=== PATIENT | female | born 1995 | race Caucasian/White ===

== ENCOUNTER 2017-05-02 10:44 | Emergency (ER) | payer BC ==
[~2017-05-02] VITALS: Ht 172.7 cm; Wt 58.9 kg
[2017-05-02 10:46] VITALS: Ht 172.7 cm; Wt 58.9 kg
[2017-05-02] MEDS ORDERED: SODIUM CHLORIDE 0.9% 1000ML 2,000 ML IV STA (10:53)
--- NOTE | 2017-05-02 11:29 | DIAGNOSTIC IMAGING REPORT ---
CHEST ONE VIEW PORTABLE CLINICAL HISTORY: Cough, hypertension. COMPARISON STUDY: No previous studies for comparison. FINDINGS: The cardiac and mediastinal contours are normal. There is no evidence of focal pulmonary consolidation. There is no evidence of failure. No pleural effusions are visualized.[ IMPRESSION: No active disease in the chest. Electronically signed by: Nikunj Cabral M.D. 05/02/2017 11:28 AM Dictated Date/Time: 05/02/2017 11:28 AM
[2017-05-02 11:39] LABS: HEMATOCRIT 40.1 % (37-47); HEMOGLOBIN 13.7 g/dL (12.0-16.0); MEAN CELL VOLUME 98.5 fL (80-100); MEAN CORPUSCULAR HEMOGLOBIN 33.7 pg (25-34); MEAN CORPUSCULAR HGB CONC 34.2 g/dl (32-36); MEAN PLATELET VOLUME 10.2 fL (7.4-10.4); PLATELET COUNT 140 K/uL (130-400); RED CELL DISTRIBUTION WIDTH CV 12.9 % (11.5-14.5); RED CELL DISTRIBUTION WIDTH SD 46.8 fL (36.4-46.3); WHITE BLOOD COUNT 5.86 K/uL (4.8-10.8)
[2017-05-02 11:42] LABS: ISTAT IONIZED CALCIUM 1.14 mmol/l; ISTAT POTASSIUM 3.7 mEq/L (3.3-5.0)
[2017-05-02 11:58] LABS: CALCIUM 8.9 mg/dl (8.5-10.1); CREATININE 1.03 mg/dl (0.60-1.20); POTASSIUM 3.7 mmol/L (3.5-5.1)
[2017-05-02 12:01] LABS: TOTAL PROTEIN 7.5 gm/dl (6.4-8.2)
[2017-05-02 12:06] LABS: BASO % 0.2 %; BASO ABS # 0.01 K/uL (0-0.2); EOS % 0.2 %; EOS ABS # 0.01 K/uL (0-0.5); IG# 0.01 K/uL (0.00-0.02); LYMPH % 14.3 %; LYMPH ABS # 0.84 K/uL (1.2-3.4); MONO % 6.8 %; NEUT % 78.3 %; NEUT ABS # 4.59 K/uL (1.4-6.5)
[2017-05-02] MEDS ORDERED: IBUP200T52 PO (12:09)
[2017-05-02] MEDS ORDERED: PHEN-905 PO (12:09)
[2017-05-02] MEDS ORDERED: SERT25TA PO (12:09)
[2017-05-02 12:40] LABS: INFLUENZA B ANTIGEN Neg for Influ B (NEG)
[2017-05-02] MEDS ORDERED: ACETAMINOPHEN 500 MG TAB PO STA (13:29)
[2017-05-02] MEDS ORDERED: SODIUM CHLORIDE 0.9% 1000ML 1,000 ML IV STA (13:41)
[2017-05-02 14:16] VITALS: TEMP 37.9
[2017-05-02] MEDS ORDERED: OSEL75CA12 PO (14:43)
[2017-05-02] MEDS ORDERED: OSELTAMIVIR PHOSPHATE 75 MG CAP PO STA (14:46)
--- NOTE | 2017-05-02 14:56 | EMERGENCY ROOM VISIT NOTE ---
History Report prepared by Abiolaibconner: Andrew Ferrara Under the Supervision of: Dr. Grover Emanuel M.D. First contact with patient: 10:52 Chief Complaint: FLU LIKE SX Stated Complaint: HOT,ACHY, COUGH History of Present Illness The patient is a 21 year old female who presents to the Emergency Room with complaints of persistent generalized illness beginning three days ago. Her symptoms include dizziness, body aches, abdominal cramping, feeling hot, cough, and nausea. She notes that her abdominal cramping began upon arrival to the ED. The patient denies chance of . She believes her period is starting soon as the abdominal cramping is usually the first sign of her menstrual period. She denies any known fevers, but feels that she may have developed a fever last night or this morning. 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 Source of History: patient Onset: Three days ago Position: other (generalized) Quality: other (illness) Timing: other (persistent) Associated Symptoms: + fevers (subjective), + cough, + nausea, + abdominal pain (cramping) Note: The patient's symptoms include dizziness, body aches, and feeling hot. Review of Systems See HPI for pertinent positives and negatives. A total of ten systems were reviewed and were otherwise negative. Past Medical & Surgical Medical Problems: (1) Depression Family History No pertinent family history stated. Social History Smoking Status: Never Smoker Occupation Status: [employer] student Current/Historical Medications Scheduled Ibuprofen (Advil), 400 MG PO UD Oseltamivir (Tamiflu), 75 MG PO BID Zxedpdsihwyif-Xajhkzqxao-Bbzad (Nyquil Severe Cold/Flu 5-6.25-10-325 mg/15Ml), 30 ML PO UD Sertraline (Zoloft), 25 MG PO QAM Allergies Coded Allergies: No Known Allergies (Unverified , 05/02/17) Physical Exam Vital Signs Date Time Temp Pulse Resp B/P (MAP) Pulse Ox O2 Delivery O2 Flow Rate FiO2 05/02/17 15:05 70 16 105/55 98 Room Air 05/02/17 14:16 37.9 05/02/17 13:26 39.3 82 20 123/61 98 Room Air 05/02/17 11:52 74 20 104/55 95 Room Air 05/02/17 11:52 112/58 2/8/18 11:51 104/55 05/02/17 11:49 71 22 05/02/17 11:44 72 23 05/02/17 11:39 73 18 05/02/17 11:34 73 19 05/02/17 11:29 68 25 05/02/17 11:24 69 21 05/02/17 11:23 67 05/02/17 10:46 37.7 97 26 76/38 96 Room Air Physical Exam GENERAL: Awake, alert. HENT: Normocephalic, Atraumatic. no hemotympanum bilaterally, snow sign negative bilaterally. Oropharynx unremarkable. EYES: Normal conjunctiva. Sclera non-icteric. PERRL bilaterally. EOMI bilaterally. NECK: Supple. No nuchal rigidity. FROM. No JVD. No C-spine tenderness. Kernig and Brudzinski negative no meningeal signs RESPIRATORY: Clear to auscultation. No wheezes, rhonchi or rales bilaterally. CARDIAC: Tachycardic rate, normal rhythm. Extremities warm and well perfused. Equal palpable radial pulses to the bilateral upper extremities. Equal palpable DP pulses to the bilateral lower extremities. ABDOMEN: Soft, non-distended. No tenderness to palpation. No rebound or guarding. No masses. Rovsig Negative. RECTAL: Deferred. MUSCULOSKELETAL: Chest examination reveals no tenderness. The back is symmetrical on inspection without obvious abnormality. There is no CVA tenderness to palpation. No joint edema. LOWER EXTREMITIES: Calves are equal size bilaterally and non-tender. No edema. No discoloration. NEURO: Normal sensorium. No sensory or motor deficits noted. No pronator drift. No facial droop. No dysarthria. SKIN: Pale. No rash or jaundice noted. Medical Decision & Procedures ER Provider Diagnostic Interpretation: Radiology results as stated below per my review and radiologist interpretation: CHEST ONE VIEW PORTABLE FINDINGS: The cardiac and mediastinal contours are normal. There is no evidence of focal pulmonary consolidation. There is no evidence of failure. No pleural effusions are visualized.[ IMPRESSION: No active disease in the chest. Electronically signed by: Nikunj Cabral M.D. 05/02/2017 11:28 AM Laboratory Results 05/02/17 11:15 Red Blood Count 4.07, Mean Corpuscular Volume 98.5, Mean Corpuscular Hemoglobin 33.7, Mean Corpuscular Hemoglobin Concent 34.2, Mean Platelet Volume 10.2, Neutrophils (%) (Auto) 78.3, Lymphocytes (%) (Auto) 14.3, Monocytes (%) (Auto) 6.8, Eosinophils (%) (Auto) 0.2, Basophils (%) (Auto) 0.2, Neutrophils # (Auto) 4.59, Lymphocytes # (Auto) 0.84, Monocytes # (Auto) 0.40, Eosinophils # (Auto) 0.01, Basophils # (Auto) 0.01 05/02/17 11:15 Test 05/02/17 11:00 05/02/17 11:15 05/02/17 11:28 05/02/17 11:31 Urine Color YELLOW Urine Appearance CLEAR (CLEAR) Urine pH >= 9.0 (4.5-7.5) Urine Specific [place] 1.022 (1.000-1.030) Urine Protein NEG (NEG) Urine Glucose (UA) NEG (NEG) Urine Ketones 1+ (NEG) Urine Occult Blood NEG (NEG) Urine Nitrite NEG (NEG) Urine Bilirubin NEG (NEG) Urine Urobilinogen NEG (NEG) Urine Leukocyte Esterase TRACE (NEG) Urine WBC (Auto) 5-10 /hpf (0-5) Urine RBC (Auto) 10-30 /hpf (0-4) Urine Hyaline Casts (Auto) 1-5 /lpf (0-5) Urine Epithelial Cells (Auto) >30 /lpf (0-5) Urine Bacteria (Auto) 2+ (NEG) Urine Renal Epithelial Cells /lpf (0-5) Urine Test NEG (NEG) White Blood Count 5.86 K/uL (4.8-10.8) Red Blood Count 4.07 M/uL (4.2-5.4) Hemoglobin 13.7 g/dL (12.0-16.0) Hematocrit 40.1 % (37-47) Mean Corpuscular Volume 98.5 fL (80-100) Mean Corpuscular Hemoglobin 33.7 pg (25-34) Mean Corpuscular Hemoglobin Concent 34.2 g/dl (32-36) Platelet Count 140 K/uL (130-400) Mean Platelet Volume 10.2 fL (7.4-10.4) Neutrophils (%) (Auto) 78.3 % Lymphocytes (%) (Auto) 14.3 % Monocytes (%) (Auto) 6.8 % Eosinophils (%) (Auto) 0.2 % Basophils (%) (Auto) 0.2 % Neutrophils # (Auto) 4.59 K/uL (1.4-6.5) Lymphocytes # (Auto) 0.84 K/uL (1.2-3.4) Monocytes # (Auto) 0.40 K/uL (0.11-0.59) Eosinophils # (Auto) 0.01 K/uL (0-0.5) Basophils # (Auto) 0.01 K/uL (0-0.2) RDW Standard Deviation 46.8 fL (36.4-46.3) RDW Coefficient of Variation 12.9 % (11.5-14.5) Immature Granulocyte % (Auto) 0.2 % Immature Granulocyte # (Auto) 0.01 K/uL (0.00-0.02) Est Creatinine Clear Calc Drug Dose 81.0 ml/min Estimated GFR () 90.6 Estimated GFR (Non- 78.2 BUN/Creatinine Ratio 13.4 (10-20) Lactic Acid Level 1.0 mmol/L (0.4-2.0) Calcium Level 8.9 mg/dl (8.5-10.1) Total Bilirubin 1.2 mg/dl (0.2-1) Aspartate Amino Transf (AST/SGOT) 23 U/L (15-37) Alanine Aminotransferase (ALT/SGPT) 21 U/L (12-78) Alkaline Phosphatase 68 U/L (45-117) Total Protein 7.5 gm/dl (6.4-8.2) Albumin 4.0 gm/dl (3.4-5.0) Globulin 3.5 gm/dl (2.5-4.0) Albumin/Globulin Ratio 1.1 (0.9-2) Bedside Lactic Acid Venous 0.77 mmol/L (0.90-1.70) Bedside Hemoglobin 13.9 g/dl (12.0-16.0) Bedside Hematocrit 41 % (37-47) Bedside Sodium 137 mEq/L (135-144) Bedside Potassium 3.7 mEq/L (3.3-5.0) Bedside Chloride 100 mEq/L (101-112) Bedside Total CO2 25 mEq/l (24-31) Anion Gap 17.0 mmol/L (16-25) Bedside Blood Urea Nitrogen 14 mg/dl (7-18) Bedside Creatinine 1.0 mg/dl Bedside Glucose (other) 115 mg/dl (70-99) Bedside Ionized Calcium (Gina) 1.14 mmol/l Test 05/02/17 11:40 Influenza Type A Antigen POS for Influ A (NEG) Influenza Type B Antigen Neg for Influ B (NEG) Laboratory results reviewed by me Medications Administered Medications (Trade) Dose Ordered Sig/Neri Route Start Time Stop Time Status Last Admin Dose Admin Sodium Chloride 2,000 ml @ 999 mls/hr Q2H1M STAT IV 05/02/17 10:53 05/02/17 12:53 DC 05/02/17 10:53 999 MLS/HR Acetaminophen (Tylenol Tab) 1,000 mg NOW STAT PO 05/02/17 13:29 05/02/17 13:30 DC 05/02/17 13:38 1,000 MG Sodium Chloride 1,000 ml @ 999 mls/hr Q1H1M STAT IV 05/02/17 13:41 05/02/17 14:41 DC 05/02/17 13:43 999 MLS/HR Oseltamivir Phosphate (Tamiflu Cap) 75 mg NOW STAT PO 05/02/17 14:46 05/02/17 14:47 DC 05/02/17 14:46 75 MG ECG Indication: other (dizziness) Rate (beats per minute): 72 Rhythm: sinus with SA Findings: no acute ischemic change, no ectopy, other (VA, QRS, and QTC intervals within normal limits. No ST elevation or depression. ) ED Course 1053: The patient was evaluated in room C9. A complete history and physical exam was performed. Patient was seen immediately. Patient was attached to client renewal specialist immediately. 2000 mL of IV fluids were ordered immediately. POC ordered immediately and was negative. POC iSTAT showed a normal hemoglobin and normal lactate. 1053: Ordered Sodium Chloride 2000 ml @ 999 mls/hr IV. 1150: Patient was reassessed after receiving IV fluids. Her repeat blood pressure is 104/44. Heart rate has normalized to the 70's. She reports feeling better after receiving the IV fluids. Skin pallor has resolved as well. 1446: The patient's vital signs are stable. Her temperature has improved with Tylenol. She has tolerated PO intake. Serial examinations reveal no abdominal tenderness to palpation, no nuchal rigidity or meningeal signs. Flu positive. The patient will be discharged on Tamiflu. 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 The patient is agreeable. She was given a school noted. DISCHARGE - Plan of care discussed with patient and questions answered. The patient was given both verbal and printed discharge instructions. The patient verbalized understanding and ability to comply. The patient is to seek outpatient follow up as noted in the discharge instructions. The patient verbalized understanding and ability to comply. The patient is discharged in stable condition. The patient was instructed to return for worsening symptoms. Medical Decision Patient was seen immediately. Patient was attached to client renewal specialist immediately. 2000 mL of IV fluids were ordered immediately. POC ordered immediately and was negative. POC iSTAT showed a normal hemoglobin and normal lactate. Patient was reassessed after receiving IV fluids. Her repeat blood pressure is 104/44. Heart rate has normalized to the 70's. She reports feeling better after receiving the IV fluids. Skin pallor has resolved as well. The patient's vital signs are stable. Her temperature has improved with Tylenol. She has tolerated PO intake. Serial examinations reveal no abdominal tenderness to palpation, no nuchal rigidity or meningeal signs. The patient will be discharged on Tamiflu. 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 The patient is agreeable. She was given a school noted. DISCHARGE - Plan of care discussed with patient and questions answered. The patient was given both verbal and printed discharge instructions. The patient verbalized understanding and ability to comply. The patient is to seek outpatient follow up as noted in the discharge instructions. The patient verbalized understanding and ability to comply. The patient is discharged in stable condition. The patient was instructed to return for worsening symptoms. Medication Reconcilliation Current Medication List: was personally reviewed by me Blood Pressure Screening Patient's blood pressure: Low blood pressure Blood pressure disposition: Did not require urgent referral Impression Primary Impression: Influenza A Critical Care I have personally spent greater than 31 minutes of critical care time in the direct management of this patient. This includes bedside care, interpretation of diagnostic studies, and testing, discussion with consultants, patient, and family members, and other required patient management activities. This 31 minutes is in excess of all separately billable procedures. Scribe Attestation The scribe's documentation has been prepared under my direction and personally reviewed by me in its entirety. I confirm that the note above accurately reflects all work, treatment, procedures, and medical decision making performed by me. The chart was completed utilizing [employer] Speech voice recognition software. Grammatical errors, random word insertions, pronoun errors, and incomplete sentences are an occasional consequence of this system due to software limitations, ambient noise, and hardware issues. Any formal questions or concerns about the content, text, or information contained within the body of this dictation should be directly addressed to the physician for clarification. Departure Information Dispostion Home / Self-Care Prescriptions Oseltamivir (Tamiflu) 75 Mg Cap 75 MG PO BID, #10 CAP Prov: Grover Emanuel M.D. 05/02/17 Referrals No Doctor, Assigned (PCP) Forms HOME CARE DOCUMENTATION FORM, IMPORTANT VISIT INFORMATION Patient Instructions ED Flu, My [facility]
[2017-05-02 15:05] VITALS: BP 105/55; PULSE 70; O2SAT 98
== END 2017-05-02 15:35 | disposition home or self-care (01) ==
LOC: C.EDB 10:46 → C.EDC 15:35
DX: J10.1 Influenza due to other identified influenza virus with other respiratory manifestations (principal); F32.9 Major depressive disorder, single episode, unspecified; Z79.899 Other long term (current) drug therapy